=== PATIENT | male | born 1975 | race Caucasian/White ===

== ENCOUNTER → 2016-12-03 | Outpatient (CLI) | payer BC ==
--- NOTE | 2016-12-03 16:33 | CT ---
EXAMINATION TYPE: CT sinus wo con DATE OF EXAM: 12/03/2016 COMPARISON: NONE HISTORY: Patient complains of chronic sinus pressure and eye swelling. CT DLP: 648 mGycm. Automated Exposure Control for Dose Reduction was Utilized. TECHNIQUE: CT scan of the sinuses is performed without contrast, axial images are obtained, coronal r eformatted images are also reviewed. FINDINGS: There is mild mucosal thickening involving the left sphenoid sinus with mild webbing or sep tation. There is smaller caliber left frontal sinus. No suspicious opacification is otherwise seen T he ostiomeatal complex is patent bilaterally on the coronal images seen best coronal image 17. Nasal septum is slightly deviated to right of midline. Visualized portion of mastoid air cells show no abnormal opacification. The globes are intact bilate rally. IMPRESSION: No significant acute paranasal sinus disease.
== END | disposition home or self-care (01) ==
LOC: RADCTMAIN 16:04
PROVIDERS: ATTEND Otolaryngology
DX: J32.9 Chronic sinusitis, unspecified (principal)
CPT/HCPCS: 70486

== ENCOUNTER → 2019-01-28 | Outpatient (CLI) | payer BC | LOC: LABWHC1 10:12 | PROVIDERS: ATTEND Otolaryngology | DX: J30.89 Other allergic rhinitis (principal) | CPT/HCPCS: 36415 ==

== ENCOUNTER → 2022-08-07 | Outpatient (CLI) | payer BC ==
--- NOTE | 2022-08-07 15:23 | P.SLEEP ---
History of Present Illness DATE: 08/07/2022 CONSULTATION/NEW PATIENT EVALUATION HISTORY OF PRESENT ILLNESS/SLEEP-WAKE EVALUATION: 47 year old gentleman had been evaluated in the sleep center for possible obstructive sleep apnea hypopnea syndrome. SLEEP SCHEDULE: Usually sleep schedule from 11 PM to 6:30 AM on weekdays and from 11 PM to 8 AM on weekend. FALLING ASLEEP: No problems with falling asleep, although patient read in bedroom. DURING SLEEP: According to patient he snores and wakes up from sleep 2 times. No history of nocturia No history of hypnogogical hallucinations, sleep paralysis, or cataplexy. DURING THE DAY/WAKE STATE: In the morning patient wake up tired, has episodes of irritability. [place] sleepiness scale is 9, which is borderline. Patient may take 1 nap during the day. PAST MEDICAL HISTORY: Hypertension, acid reflux, episodes of tachycardia. PAST SURGICAL HISTORY: [place] tooth removed. MEDICATIONS: Losartan 75 mg once a day, omeprazole 20 mg once a day. SOCIAL HISTORY: Positive for smoking cigars, alcohol consumption occasional. FAMILY HISTORY: Hypertension, sinuses problems, snoring, acid reflux. REVIEW OF SYSTEMS: Snoring, awakenings from sleep, sleepiness during the day. No fevers. No double vision. No recent chest pain. No shortness of breath. No abdominal pain. No bleeding episodes. No blood in urine. No seizure episodes. PHYSICAL EXAMINATION: GENERAL: A pleasant patient without any distress. VITAL SIGNS: BP 129/87 , HR 74 , RR 16 , weight 235.6 pounds, height 5 foot 11 inches, body mass index 32.7 . HEENT: PERRLA, EOMI. Evaluation of oropharynx showed tongue protrudes midline, low position of soft palate Mallampati 4. NECK: Supple. No JVD. Thyroid is not palpable. 16.5 inches in circumference. LUNGS: Clear to percussion and to auscultation. Good air exchange. No wheezing or rhonchi. HEART: S1, S2 regular. No murmurs, gallops or rubs. ABDOMEN: Soft and nontender. Bowel sounds are present. No organomegaly appreciated. EXTREMITIES: No clubbing or cyanosis. ROLLED GLASS CROSSCUTTER: Awake, alert, and oriented x3. Cranial nerves 2 to 7 intact. There is no fasciculation or atrophy noted. No focal deficits observed. ASSESSMENT: 1. Snoring, awakenings from sleep, extremely low position of soft palate, episodes of sleepiness during the day. Obstructive sleep apnea hypopnea syndrome. 2. Hypertension. 3. Acid reflux. 4. Mild obesity. 5 history of tachycardia. PLAN: 1. Home sleep apnea test 2. Following plan after eating sleep test. 3. Preferable position during sleep on the side. 4. No driving if patient feels any sleepiness. Patient is aware of civil and criminal liability for unsafe driving. 5. Sleep hygiene with regular sleep time for at least 7.5-8 hours. 6. Watching weight. Thank you very much for referring this patient for consultation. Sincerely, Francisco J Agarwal MD, PhD, FAASM. Diplomat of [place] [employer], Sleep Medicine Board by [place] [employer] [place] [employer] Chip Mixing Machine Operator of [facility] [place] Sleep Note - Sleep Note Sleep Note: Temperature: Pulse Rate: Respiratory Rate: Blood Pressure: SpO2: Height: Weight: BMI: Neck Circumference:
== END ==
LOC: 3 N SLEEP 14:33
PROVIDERS: ATTEND Internal Medicine
DX: G47.33 Obstructive sleep apnea (adult) (pediatric) (principal); I10 Essential (primary) hypertension; K21.9 Gastro-esophageal reflux disease without esophagitis; E66.9 Obesity, unspecified; Z86.79 Personal history of other diseases of the circulatory system; F17.290 Nicotine dependence, other tobacco product, uncomplicated; Z88.0 Allergy status to penicillin; Z91.09 Other allergy status, other than to drugs and biological substances
CPT/HCPCS: 99211

== ENCOUNTER → 2022-09-04 | Outpatient (CLI) | payer BC ==
--- NOTE | 2022-09-04 10:25 | CT ---
EXAMINATION TYPE: CT abdomen w con DATE OF EXAM: 09/04/2022 COMPARISON: None HISTORY: Epigastric pain CT DLP: 1369.5 mGycm CONTRAST: CT scan of the abdomen is performed with Oral Contrast and with IV Contrast, patient injected with 10 0 mL of Isovue 300. FINDINGS: LUNG BASES-: No visible nodule. No infiltrate. LIVER/GB: No calcified gallstones. There is mild hepatic steatosis. No space occupying hepatic les ion. Biliary tree is of normal caliber. PANCREAS: No inflammation. No distinct mass. SPLEEN: No splenic enlargement. No lesion seen. ADRENALS: No nodule. No thickening. KIDNEYS/BLADDER: No hydronephrosis. No nephrolithiasis. There is a solid appearing well-circumscrib ed mass within the parapelvic upper pole right kidney measuring 3.5 x 2.8 cm. Hounsfield unit measure ment up to 120 Hounsfield units. Delayed imaging Hounsfield unit measurement at 70 Hounsfield unit. M alignancy is not excluded. consult recommended. Urinary bladder grossly unremarkable. BOWEL: Visualized bowel loops have normal caliber. LYMPH NODES: No greater than 1cm abdominal or pelvic lymph nodes are appreciated. AORTA: No significant abnormality. OSSEOUS STRUCTURES: No significant abnormality is seen. OTHER: No significant additional abnormality is seen. IMPRESSION: 1. There is a solid appearing well-circumscribed mass within the parapelvic upper pole right kidney m easuring 3.5 x 2.8 cm.Malignancy is not excluded. consult recommended.
== END | disposition home or self-care (01) ==
LOC: RADCTMAIN 08:54
PROVIDERS: ATTEND Family Medicine
DX: N28.89 Other specified disorders of kidney and ureter (principal); R10.13 Epigastric pain
CPT/HCPCS: 74160; Q9967

== ENCOUNTER → 2022-11-12 | Outpatient (CLI) | payer BC ==
--- NOTE | 2022-11-12 18:09 | P.PN ---
Subjective DATE: 11/12/2022 FOLLOW UP VISIT. Patient with obstructive sleep apnea hypopnea syndrome return to sleep center for follow-up visit. Recently patient had sleep study which documented obstructive sleep apnea hypopnea syndrome. Patient was initiated on PAP therapy and today is first visit after treatment was started. Patient was able to use PAP equipment every night. I explained results of home sleep apnea test for the patient in details. Patient has mild sleep apnea. On treatment with CPAP he feels better regarding to his sleep and if feeling during the day. The patient does not have significant problems with the mask, PAP pressure and humidification. [place] sleepiness scale is 5, which is normal. I checked information from PAP unit. PAP unit pressure 5-15, average 7.2 cm H2O. Usage is 93% and about 50 % for more then 4 hours, average 3-3/4 hours per night. Leak is slightly increased to 29.4 l/m, which is in acceptable range. Apnea Hypopnea Index is absolutely perfect 0. MEDICATIONS:1. Losartan 75 mg once a day 2. Omeprazole 20 mg once a day During physical exam: GENERAL: A pleasant patient without any distress. VITAL SIGNS: BP 123/84, HR 74, RR 18, weight 238.4, temperature 97.9, oxygen saturation at room air 97%. HEENT: PERRLA, EOMI.low position of soft palate, Mallapati 4 . NECK: Supple. No JVD. LUNGS: Clear to percussion and to auscultation. Good air exchange. No wheezing or rhonchi. HEART: S1, S2 regular. ABDOMEN: Soft and nontender.[] EXTREMITIES: No clubbing or cyanosis. DIRECTOR VOLUNTEER SERVICES: Awake, alert, and oriented x3. No focal deficit. Impressions: 1. Obstructive sleep apnea-hypopnea syndrome. Patient demonstrated borderline compliance with treatment, benefiting from treatment. 2. Hypertension. 3. Acid reflux. 4. Mild obesity. 5. History of tachycardia. Plan: 1. Continue using PAP equipment every night for the whole night. 2. To change air filter at least 1-2 times per month. 3. PAP unit should stay lower then position of the head. 4. Advised patient to remove all remaining water from humidifier canister daily and make it dry after each usage. Refill canister with fresh distilled water before each usage. 5. Sleep hygiene with regular time in bed for at least 8 hours. 6. Precautions related to driving. No driving if feel any sleepiness. The 7. I will maintain prescription for PAP supplies including mask, tube, filters. 8. Follow up visit in 6 months or earlier if patient has any problems. 9. Watching and losing weight. Thank you very much for allowing me to participate in the management of your patient. Francisco J Agarwal MD, PhD, FAASM. Diplomat of [place] [employer], Sleep Medicine Board by [place] [employer] Disability Hearing Officer of [facility] [place]
== END ==
LOC: 3 N SLEEP 16:00
PROVIDERS: ATTEND Internal Medicine
DX: G47.33 Obstructive sleep apnea (adult) (pediatric) (principal); I10 Essential (primary) hypertension; K21.9 Gastro-esophageal reflux disease without esophagitis; E66.9 Obesity, unspecified; Z79.899 Other long term (current) drug therapy; Z99.89 Dependence on other enabling machines and devices; Z86.79 Personal history of other diseases of the circulatory system
CPT/HCPCS: 99212

== ENCOUNTER → 2022-12-23 | Outpatient (CLI) | payer BC ==
--- NOTE | 2022-12-23 16:57 | P.SLEEP ---
History of Present Illness H&P Date: 12/23/22 This is a very pleasant 47-year-old male patient was coming in for a second opinion regarding his obstructive sleep apnea. The patient has a diagnosis of sleep apnea. He has undergone a home sleep study that was done on 08/28/2022 and the patient was found to have an AHI of 5.3. No significant nocturnal oxygen desaturations. He had essentially obstructive hypopneas a total of 41 throughout the sleep study. This was a home sleep study that was done at that time the patient used to weigh around 235 pounds. He was given a CPAP machine. He was given an APAP unit. The patient was trying to adjust to the APAP treatment. During this time, the patient was diagnosed having a renal mass. He was having some abdominal discomfort. Further imaging revealed a kidney mass and the patient underwent a nephrectomy this was done at [facility]. Surgery was successful. Around the time of the surgery, the patient was unable to use his CPAP as he was quite uncomfortable with abdominal wounds. Following her discharge from the hospital, the patient was readmitted for shortness of breath and he was diagnosed having pulmonary embolism without DVTs. He was started on anticoagulation and currently is on Eliquis. His compliance check was done on 11/12/2022 and he felt to demonstrate adequate compliancy. The patient was not seeing major benefit from CPAP therapy and he came into FURTHER advice. Since his surgery, the patient has lost weight and currently his weight is down to 225 pounds. No major hypersomnia or sleepiness during the day. He has limited snoring. He currently is not drinking beer. He is awake and alert during the day. His level of alertness is improved considerably with weight loss. He is not sure whether he should continue therapy with CPAP. Limited snoring. No sleep fragmentation. No hypersomnia or sleepiness during the day. He is also have hypertension which is essentially well controlled for now. He has also occasional acid reflux. No history of coronary artery disease. No A. fib. No anxiety. No depression. No substance abuse. No nocturnal seizures. No frequent nocturnal urination. Review of Systems A full review of system was done and the positive findings are all positive findings were mentioned above in history of present illness Past Medical History Past Medical History: Pulmonary Embolus (PE), Sleep Apnea/CPAP/BIPAP Additional Past Medical History / Comment(s): Renal cancer post nephrectomy, hypertension, acid reflux, gout, pulmonary embolism Additional Past Surgical History / Comment(s): Nephrectomy, Smoking Status: Former smoker Past Alcohol Use History: Rare Past Drug Use History: None Reported Medications and Allergies Home Medications and Allergies Comment(s): Colchicine 0.6 mg by mouth daily and Eliquis 5 mg by mouth twice a day ALLERGIES are to penicillin Physical Exam BP is 132/87, pulse is 86, respirations 16, temperature is 98.3, pulse ox 98% on room air, weight is 225 and a body mass index is 31.2. Current [place] score is at 5. The patient appeared well nourished and normally developed. Vital signs as documented. Head exam is unremarkable. No scleral icterus or corneal arcus noted. Neck is without jugular venous distension, thyromegaly, or carotid bruits. Carotid upstrokes are brisk bilaterally. The patient is a Mallampati class IV with crowding of the posterior oropharynx. Lungs are clear to ausculta tion and percussion. Cardiac exam reveals the PMI to be normally sized and situated. Rhythm is regular. First and second heart sounds normal. No murmurs, rubs or gallops. Abdominal exam reveals normal bowel sounds, no masses, no organomegaly and no aortic enlargement. Extremities are nonedematous and both femoral and pedal pulses are normal.Examination of the skin revealed no evidence of significant rashes, suspicious appearing nevi or other concerning lesions.Neurologically, the patient is awake and alert and the patient does not have any focal neurological deficit. Cranial nerves are essentially intact. Assessment and Plan Plan: Mild obstructive sleep apnea with an AHI of 5.3. Diagnosis established with a home sleep study that was done on 08/28/2022. No significant nocturnal oxygen desaturation. Given APAP therapy and the patient has not been able to achieve compliancy. Renal cancer post nephrectomy Recent diagnosis of an acute pulmonary embolism that occurred postop following nephrectomy. The patient is currently on anticoagulation Gout, currently on colchicine Hypertension Acid reflux Plan I reviewed the home sleep study. The patient is clinically asymptomatic and the patient is not having any major issues with hypersomnia or sleepiness. At the same time his disease with sleep apnea was extremely mild with an AHI of 5.3 and since his nephrectomy, the patient has quit drinking alcohol and he has lost weight and currently his weight down to 225 pounds. Is also interested in losing more weight. Based on all this, I thought it's reasonable to discontinue CPAP therapy. The patient is clinically doing well and has no Nba. issues. We'll discontinue CPAP therapy. I recommended losing further weight and rechecking a home sleep study in 6 months time. The patient was very comfortable with this approach. Continue anticoagulation. Continue gout treatment. Sleep without of the bed elevated and preferably on his sides. Avoid alcohol drinking. We'll continue to follow. Sleep Note - Sleep Note Sleep Note: Temperature: Pulse Rate: Respiratory Rate: Blood Pressure: SpO2: Height: Weight: BMI: Neck Circumference:
== END ==
LOC: 3 N SLEEP 14:07
PROVIDERS: ATTEND Internal Medicine Critical Care Medicine
DX: G47.33 Obstructive sleep apnea (adult) (pediatric) (principal); I26.09 Other pulmonary embolism with acute cor pulmonale; I10 Essential (primary) hypertension; K21.9 Gastro-esophageal reflux disease without esophagitis; M10.9 Gout, unspecified; Z85.528 Personal history of other malignant neoplasm of kidney; Z90.5 Acquired absence of kidney; Z79.01 Long term (current) use of anticoagulants; Z88.0 Allergy status to penicillin
CPT/HCPCS: 99211

== ENCOUNTER → 2023-06-15 | Outpatient (CLI) | payer BC ==
[2023-06-15 08:11] LABS: African American GFR (CKD) 78 (>60 ml/min/1.73 sqM); Blood Urea Nitrogen 18 mg/dL (9-20); Non-African American GFR(CKD) 67 (>60 ml/min/1.73 sqM)
--- NOTE | 2023-06-17 10:58 | CT ---
EXAMINATION TYPE: CT angio chest CT DLP: 688 mGycm, Automated exposure control for dose reduction was used. DATE OF EXAM: 06/15/2023 10:19 AM COMPARISON: None CLINICAL INDICATION:Male, 48 years old with history of I26.99 PE; PE TECHNIQUE/CONTRAST: CTA scan of the thorax is performed with IV Contrast, patient injected with 100 mL of Isovue 370, MIP images are created and reviewed these are created on a separate workstation.. FINDINGS: Pulmonary Artery: There is no evidence for a filling defect within the pulmonary vasculature to sugge st acute pulmonary embolism. The pulmonary artery is of normal size. Lungs/Pleura: No evidence of focal consolidation, pleural effusion or pneumothorax. Airway: Large airways are patent. Heart: Heart is within normal limits for size. Vasculature: No evidence of aortic aneurysm. Mediastinum: No gross evidence of adenopathy. Musculoskeletal: No acute osseous abnormalities Soft Tissues: Unremarkable. Lower neck: No significant findings. Upper Abdomen: No significant findings. IMPRESSION: 1. No evidence of pulmonary embolism. 2. Mild emphysema
== END | disposition home or self-care (01) ==
LOC: RADCTMAIN 07:21
PROVIDERS: ATTEND Internal Medicine Critical Care Medicine
DX: J43.9 Emphysema, unspecified (principal); I26.99 Other pulmonary embolism without acute cor pulmonale
CPT/HCPCS: 82565; 84520; 71275; 36415; Q9967